=== PATIENT | male | born 1960 | race Asian ===

== ENCOUNTER 2020-04-12 13:58 | Emergency (ER) | payer MEDICAID ==
[~2020-04-12] VITALS: Ht 160 cm; Wt 61.4 kg
[2020-04-12 14:01] VITALS: BP 139/95
== END 2020-04-12 17:58 | disposition home or self-care (01) ==
LOC: EMS 14:03
DX: M54.16 Radiculopathy, lumbar region (principal); F17.210 Nicotine dependence, cigarettes, uncomplicated
CPT/HCPCS: 99281; Z7502